=== PATIENT | female | born 1965 ===

== ENCOUNTER 2017-04-23 12:19 | Emergency (ER) | payer OTHER ==
[2017-04-23] MEDS ORDERED: Iohexol 240 (50 ml) PO STA (13:44)
[2017-04-23] MEDS ORDERED: Iohexol 240 (50 ml) ONE (14:08)
[2017-04-23 14:10] LABS: BASO # 0.1 K/uL (0.0-0.2); BASO % 0.7 % (0.0-2.0); EOS # 0.2 K/uL (0.0-0.7); EOS % 2.1 % (0.0-4.0); LYMPH # 2.8 K/uL (1.0-4.3); LYMPH % 34.5 % (20.0-40.0); MEAN CELL VOLUME 79.8 fL (81.0-99.0); MEAN CORPUSCULAR HEMOGLOBIN 25.8 pg (27.0-31.0); MEAN CORPUSCULAR HGB CONC 32.4 g/dL (33.0-37.0); MEAN PLATELET VOLUME 9.1 fL (7.2-11.7); MONO # 0.4 K/uL (0.0-0.8); MONO % 5.2 % (0.0-10.0); RED CELL DISTRIBUTION WIDTH 14.4 % (11.5-14.5); WHITE BLOOD COUNT 8.1 K/uL (4.8-10.8)
[2017-04-23 14:13] LABS: RBC URINE 1 /hpf (0-3); URINE BILIRUBIN NEGATIVE (NEGATIVE); URINE BLOOD NEGATIVE (NEGATIVE); URINE COLOR Yellow (YELLOW); URINE GLUCOSE (UA) NORMAL (Normal); URINE KETONE NEGATIVE (NEGATIVE); URINE LEUKOCYTE ESTERASE NEG Leu/uL (Negative); URINE PROTEIN NEGATIVE (NEGATIVE); URINE UROBILINOGEN NORMAL mg/dL (0.2-1.0); WBC URINE 1 /hpf (0-5)
[2017-04-23 14:32] LABS: CHLORIDE 99 mmol/L (98-107); POTASSIUM 4.2 mmol/L (3.6-5.2); SODIUM 141 mmol/L (132-148)
[2017-04-23 14:34] LABS: BILIRUBIN,TOTAL 0.5 mg/dL (0.2-1.3); GFR AFRICAN-AMERICAN > 60
[2017-04-23 14:35] LABS: ALB/GLOB RATIO 1.1 (1.0-2.1); ALKALINE PHOSPHATASE 102 U/L (38-126); ALT/SGPT 32 U/L (9-52); AST/SGOT 27 U/L (14-36); BLOOD UREA NITROGEN 13 mg/dL (7-17); CALCIUM 8.8 mg/dl (8.6-10.4); CARBON DIOXIDE 26 mmol/L (22-30); GLUCOSE,RANDOM 153 mg/dL (65-105); TOTAL PROTEIN 7.8 g/dL (6.3-8.3)
--- NOTE | 2017-04-23 15:16 | C.PDOC ---
History Of Present Illness 52-year-old female, presents to the emergency department with complaints of two- month duration of hemorrhoid pain. Patient states she has been experiencing bleeding and pain due to enlarged hemorrhoids. Patient states she saw her PMD, who placed patient on preparation H and Polyethelene glycol for constipation, that she is using with minimal relief. Patient notes constipation persists, stating she normally has a bowel movement every 2-3 days. She also notes associated nausea and non-bloody/non-bilious vomiting for 2 days. Time Seen by Provider: 04/23/17 13:19 Chief Complaint (Nursing): Abdominal Pain History Per: Patient History/Exam Limitations: no limitations Onset/Duration Of Symptoms: Days Current Symptoms Are (Timing): Still Present Severity: Moderate Location Of Pain/Discomfort: Diffuse Past Medical History Reviewed: Historical Data, Nursing Documentation, Vital Signs Vital Signs: Last Vital Signs Temp 98.1 F 04/23/17 12:29 Pulse 62 04/23/17 12:29 Resp 20 04/23/17 12:29 BP 96/63 L 04/23/17 12:29 Pulse Ox 99 04/23/17 15:17 - Medical History PMH: Diabetes, HTN, Hypercholesterolemia Family History: States: No Known Family Hx - Social History Hx Tobacco Use: No Hx Alcohol Use: No Hx Substance Use: No - Immunization History Hx Tetanus Toxoid Vaccination: No Hx Influenza Vaccination: Yes Hx Pneumococcal Vaccination: No Review Of Systems Except As Marked, All Systems Reviewed And Found Negative. Constitutional: Negative for: Fever, Chills Cardiovascular: Negative for: Chest Pain, Palpitations Respiratory: Negative for: Shortness of Breath Gastrointestinal: Positive for: Nausea, Vomiting, Abdominal Pain, Other ( hemorrhoids) Genitourinary: Negative for: Vaginal Discharge, Vaginal Bleeding Musculoskeletal: Negative for: Back Pain Neurological: Negative for: Weakness, Numbness Physical Exam - Physical Exam Appears: Non-toxic, No Acute Distress Skin: Warm, Dry, No Rash Head: Atraumatic, Normacephalic Eye(s): bilateral: Normal Inspection, PERRL Oral Mucosa: Moist Lips: Normal Appearing Neck: Normal ROM Chest: Symmetrical Cardiovascular: Rhythm Regular, No Murmur Respiratory: Normal Breath Sounds, No Accessory Muscle Use Gastrointestinal/Abdominal: Soft, Tenderness (lower, with guarding. ), Guarding , No Rebound Rectal: Hemorrhoids (external, minimally engorged) Extremity: Normal ROM Neurological/Psych: Oriented x3 ED Course And Treatment - Laboratory Results Result Diagrams: 04/23/17 14:06 04/23/17 14:06 Lab Interpretation: No Acute Changes O2 Sat by Pulse Oximetry: 99 Pulse Ox Interpretation: Normal - CT Scan/US CT abdomen and pelvis Other Rad Studies (CT/US): Read By Radiologist, Radiology Report Reviewed CT/US Interpretation: Accession No. : [id number]. Patient Name / ID : YARELI SHARPE / [id number]. Exam Date : 04/23/2017 16:27:22 ( Approved ). Study Comment : Sex / Age : F / 52Y. Creator : Nemo Ding MD. Dictator : Nemo Ding MD. Water/Wastewater Project Engineer : Personalized Living Manager Nurse : Nemo Ding MD. Approver2 : Report Date : 04/23/2017 17:09:11. My Comment : . PROCEDURE: CT Abdomen and Pelvis with oral and IV contrast. HISTORY: abd pain. COMPARISON: Abdominal ultrasound performed 07/04/13. TECHNIQUE: Contiguous axial images of the abdomen and pelvis. Oral and IV contrast was administered. Coronal and Sagittal reformats generated and reviewed. Contrast dose: 100 mL Visipaque. Radiation dose: Total exam DLP = 1081.27 mGy-cm. This CT exam was performed using one or more of the following dose reduction techniques: Automated exposure control, adjustment of the mA and/or kV according to patient size, and/or use of iterative reconstruction technique. FINDINGS: LOWER THORAX: No visible consolidation, pleural effusion, or pneumothorax. Small hiatal hernia/distal esophageal wall thickening. LIVER: Unremarkable. GALLBLADDER AND BILE DUCTS: Unremarkable. PANCREAS: Unremarkable. SPLEEN: Unremarkable. ADRENALS: Unremarkable. KIDNEYS AND URETERS: The kidneys enhance symmetrically. No hydronephrosis or obstructing renal calculus. BLADDER: The urinary bladder appears unremarkable. REPRODUCTIVE: Uterus is present. APPENDIX: The appendix appears within normal limits of caliber. No secondary signs of acute appendicitis. BOWEL: The stomach is nondistended. The bowel loops appear within normal limits of caliber without evidence of intestinal obstruction. Pokl-sj-hzygzvbo constipation. PERITONEUM: No significant free fluid. No definite free air. LYMPH NODES: No bulky lymphadenopathy identified. VASCULATURE: No aortic aneurysm. BONES: Degenerative changes of the spine including both anterior and posterior osteophytes. OTHER FINDINGS: Fat containing ventral wall hernia. IMPRESSION: Small hiatal hernia/distal esophageal wall thickening. Mild moderate constipation. Fat containing ventral wall hernia. Degenerative changes of the spine including both anterior and posterior osteophyte formation. Reevaluation Time: 17:33 Reassessment Condition: Improved Disposition Counseled Patient/Family Regarding: Studies Performed, Diagnosis, Need For Followup, Rx Given - Disposition Disposition: HOME/ ROUTINE Disposition Time: 17:41 Condition: IMPROVED Prescriptions: Docusate [Colace] 100 mg PO TID #90 cap Hydrocortisone 2.5% (Rectal) [Anusol-HC] 1 appl RC TID #1 tube Instructions: Hemorrhoids (ED), Constipation (ED) Print Language: KYRGYZ - Clinical Impression Clinical Impression: Constipation, Hemorrhoids - Scribe Statement The provider has reviewed the documentation as recorded by the Scribe (Alysha Juarez) All medical record entries made by the Scribe were at my direction and personally dictated by me. I have reviewed the chart and agree that the record accurately reflects my personal performance of the history, physical exam, medical decision making, and the department course for this patient. I have also personally directed, reviewed, and agree with the discharge instructions and disposition.
[2017-04-23] MEDS ORDERED: Iodixanol 320 MG/ML 100 ML BOTTLE IV ONE (15:38)
--- NOTE | 2017-04-23 17:10 | CT ---
PROCEDURE: CT Abdomen and Pelvis with oral and IV contrast. HISTORY: abd pain COMPARISON: Abdominal ultrasound performed 07/04/13 TECHNIQUE: Contiguous axial images of the abdomen and pelvis. Oral and IV contrast was administered. Coronal and Sagittal reformats generated and reviewed. Contrast dose: 100 mL Visipaque Radiation dose: Total exam DLP = 1081.27 mGy-cm. This CT exam was performed using one or more of the following dose reduction techniques: Automated exposure control, adjustment of the mA and/or kV according to patient size, and/or use of iterative reconstruction technique. FINDINGS: LOWER THORAX: No visible consolidation, pleural effusion, or pneumothorax. Small hiatal hernia/distal esophageal wall thickening. LIVER: Unremarkable. GALLBLADDER AND BILE DUCTS: Unremarkable. PANCREAS: Unremarkable. SPLEEN: Unremarkable. ADRENALS: Unremarkable. KIDNEYS AND URETERS: The kidneys enhance symmetrically. No hydronephrosis or obstructing renal calculus. BLADDER: The urinary bladder appears unremarkable. REPRODUCTIVE: Uterus is present. APPENDIX: The appendix appears within normal limits of caliber. No secondary signs of acute appendicitis. BOWEL: The stomach is nondistended. The bowel loops appear within normal limits of caliber without evidence of intestinal obstruction. Pmjl-uy-hyrklmde constipation. PERITONEUM: No significant free fluid. No definite free air. LYMPH NODES: No bulky lymphadenopathy identified. VASCULATURE: No aortic aneurysm. BONES: Degenerative changes of the spine including both anterior and posterior osteophytes. OTHER FINDINGS: Fat containing ventral wall hernia. IMPRESSION: Small hiatal hernia/distal esophageal wall thickening. Mild moderate constipation. Fat containing ventral wall hernia. Degenerative changes of the spine including both anterior and posterior osteophyte formation.
[2017-04-23 18:09] VITALS: BP 107/68; PULSE 55; RESP 18; TEMP 98.2; O2SAT 100
== END 2017-04-23 18:09 | disposition home or self-care (01) ==
LOC: C.ER 12:19
DX: K64.4 Residual hemorrhoidal skin tags (principal); K59.00 Constipation, unspecified
CPT/HCPCS: 74177; 80053; 81001; 83690; 85025; 96374; 96375; 99284; J2270; J2405; Q9966; Q9967

== ENCOUNTER 2018-01-12 18:15 | Emergency (ER) | payer OTHER ==
[2018-01-12 18:33] VITALS: RESP 18; O2SAT 100
[2018-01-12] MEDS ORDERED: Albuterol 0.083% Inhal Sol (2.5 mg/3 mL) UD IH STA (19:25)
[2018-01-12] MEDS ORDERED: Amoxicillin-Clav 875-125 mg Tab PO STA (19:33)
[2018-01-12] MEDS ORDERED: Albuterol 0.083% Inhal Sol (2.5 mg/3 mL) UD ONE (19:41)
[2018-01-12] MEDS ORDERED: Amoxicillin-Clav 875-125 mg Tab PO ONE (19:42)
--- NOTE | 2018-01-12 20:34 | C.PDOC ---
History Of Present Illness 52 year old female with PMHx of DM presents to the ED for evaluation of cold symptoms associated with nasal congestion, sore throat, swelling and pain to neck lymph noses and a dry cough. Otherwise, Patient denies fever, headache, SOB , dyspnea, wheezing, abdominal pain, nausea, vomit, diarrhea, recent travel, sick contacts. (Ana Orellana) History Per: Patient History/Exam Limitations: no limitations Onset/Duration Of Symptoms: Days Severity: Mild Recent travel outside of the [place]: No Additional History Per: Patient Time Seen by Provider: 01/12/18 19:14 Chief Complaint (Nursing): Cough, Cold, Congestion Past Medical History Reviewed: Historical Data, Nursing Documentation, Vital Signs - Medical History PMH: Diabetes, HTN, Hypercholesterolemia Surgical History: No Surg Hx Family History: States: Unknown Family Hx - Social History Hx Tobacco Use: No Hx Alcohol Use: No Hx Substance Use: No - Immunization History Hx Tetanus Toxoid Vaccination: No Hx Influenza Vaccination: Yes Hx Pneumococcal Vaccination: No Vital Signs: Last Vital Signs Temp 98.5 F 01/12/18 21:10 Pulse 77 01/12/18 21:10 Resp 18 01/12/18 21:10 BP 110/66 01/12/18 21:10 Pulse Ox 100 01/12/18 21:10 Review Of Systems Constitutional: Negative for: Fever, Chills ENT: Positive for: Nose Congestion Cardiovascular: Negative for: Chest Pain Respiratory: Positive for: Cough. Negative for: Shortness of Breath Gastrointestinal: Negative for: Nausea, Vomiting, Abdominal Pain Musculoskeletal: Positive for: Neck Pain Skin: Negative for: Rash Neurological: Negative for: Headache Physical Exam - Physical Exam Appears: Well, Non-toxic, No Acute Distress Skin: Normal Color, Warm, Dry, No Rash Head: Normacephalic Eye(s): bilateral: PERRL Ear(s): Bilateral: Normal Nose: No Flaring, Discharge (B/L nasal congestion with scant clear rhinorrhea) Oral Mucosa: Moist, No Drooling Tongue: Normal Appearing Lips: Normal Appearing Throat: Erythema (mod B/L with mild edema), No Exudate, No Drooling Neck: Trachea Midline, Supple Lymphatic: Adenopathy (R>L anterior cervical, mild tenderness, mobile) Cardiovascular: Rhythm Regular, No Murmur Respiratory: No Decreased Breath Sounds, No Accessory Muscle Use, No Stridor, No Wheezing Gastrointestinal/Abdominal: Soft, No Tenderness Extremity: Normal ROM, No Deformity, No Swelling Neurological/Psych: Oriented x3, Normal Speech ED Course And Treatment O2 Sat by Pulse Oximetry: 100 Pulse Ox Interpretation: Normal - Radiology CXR: Interpreted by Me, Viewed By Me CXR Interpretation: Yes: No Acute Disease Progress Note: On re-evaluation, pt is afebrile, hemodynamicaly stable. Non- toxic. Tolerate Po well in ED. PulseOx 100% RA. ENT: exam c/w acute pharyngitis, uvula midline, no edema. Neck: Supple, (-) meningeal sign. Lungs : CTA B/L, BS equal B/L. CVS: (+)S1S2, reg. Abd: benign. CXR review - normal. Pt advised on course of ds. ref. to f/u with PMD in 1-2 days for re- eavl. return to ED if anyw orsening or new changes. Disposition Counseled Patient/Family Regarding: Studies Performed, Diagnosis, Need For Followup, Rx Given - Disposition Disposition Time: 20:31 - Disposition Referrals: Kristel Silverman MD [Medical Doctor] - Disposition: HOME/ ROUTINE Condition: STABLE Additional Instructions: Encourage fluids Take medication as prescribed Follow up with PMD in 2-3 days for re-evaluation. Return to ED if any worsening or new changes. Prescriptions: Amoxicillin/Clavulanate [Augmentin 875 MG-125 MG] 1 tab PO BID #14 tab Benzonatate [Tessalon Perle] 100 mg PO TID #14 capsule Prednisone [Deltasone] 20 mg PO DAILY #3 tablet Instructions: Sore Throat in Adults Forms: [employer] (Solomon Islander) Print Language: ESTONIAN - Clinical Impression Clinical Impression: Pharyngitis - PA / WORKGROUP LEADER / Resident Statement MD/DO has reviewed & agrees with the documentation as recorded. - Scribe Statement The provider has reviewed the documentation as recorded by the Scribe - Scribe Statement George Mary All medical record entries made by the Scribe were at my direction and personally dictated by me. I have reviewed the chart and agree that the record accurately reflects my personal performance of the history, physical exam, medical decision making, and the department course for this patient. I have also personally directed, reviewed, and agree with the discharge instructions and disposition. (Ana Orellana)
[2018-01-12 21:12] VITALS: BP 110/66; PULSE 77; TEMP 98.5
--- NOTE | 2018-01-13 08:07 | RAD ---
HISTORY: Cough COMPARISON: Chest x-ray 09/23/2016 TECHNIQUE: Chest PA and lateral FINDINGS: LUNGS: No focal consolidation is seen. PLEURA: No pleural effusion is identified. CARDIOVASCULAR: Heart size is within normal limits. OSSEOUS STRUCTURES: Degenerative changes noted of the spine. VISUALIZED UPPER ABDOMEN: Unremarkable. OTHER FINDINGS: None. IMPRESSION: No acute cardiopulmonary process seen.
== END 2018-01-12 21:11 | disposition home or self-care (01) ==
LOC: C.ER 18:15
DX: J02.9 Acute pharyngitis, unspecified (principal); E11.9 Type 2 diabetes mellitus without complications

== ENCOUNTER 2018-08-02 13:06 | Emergency (ER) | payer OTHER ==
[2018-08-02] MEDS ORDERED: Sodium Chloride 0.9% 500 ML IV ONE (15:08)
[2018-08-02] MEDS ORDERED: Sodium Chloride 0.9% 1,000 ML ONE ×2 (15:44)
[2018-08-02 15:49] LABS: BASO # 0.1 K/uL (0.0-0.2); BASO % 0.6 % (0.0-2.0); EOS # 0.2 K/uL (0.0-0.7); EOS % 2.4 % (0.0-4.0); HEMOGLOBIN 11.3 g/dL (11.0-16.0); LYMPH # 2.9 K/uL (1.0-4.3); LYMPH % 30.8 % (20.0-40.0); MEAN CELL VOLUME 79.5 fL (81.0-99.0); MEAN CORPUSCULAR HEMOGLOBIN 26.3 pg (27.0-31.0); MEAN CORPUSCULAR HGB CONC 33.1 g/dL (33.0-37.0); MEAN PLATELET VOLUME 8.3 fL (7.2-11.7); MONO # 0.5 K/uL (0.0-0.8); MONO % 5.5 % (0.0-10.0); NEUT # 5.7 K/uL (1.8-7.0); NEUT % 60.7 % (50.0-75.0); RBC 4.28 Mil/uL (3.80-5.20); RED CELL DISTRIBUTION WIDTH 13.9 % (11.5-14.5); WHITE BLOOD COUNT 9.4 K/uL (4.8-10.8)
[2018-08-02 15:53] LABS: SQUAMOUS EPITHIAL < 1 /hpf (0-5); URINE BILIRUBIN NEGATIVE (NEGATIVE); URINE BLOOD NEGATIVE (NEGATIVE); URINE CLARITY Clear (Clear); URINE COLOR Yellow (YELLOW); URINE GLUCOSE (UA) NORMAL (Normal); URINE LEUKOCYTE ESTERASE NEG Leu/uL (Negative); URINE PROTEIN NEGATIVE (NEGATIVE); URINE UROBILINOGEN NORMAL mg/dL (0.2-1.0)
[2018-08-02 16:02] LABS: ALB/GLOB RATIO 1.2 (1.0-2.1); ALBUMIN 4.4 g/dL (3.5-5.0); ALT/SGPT 26 U/L (9-52); AST/SGOT 26 U/L (14-36); BLOOD UREA NITROGEN 18 mg/dL (7-17); CALCIUM 9.2 mg/dl (8.6-10.4); GFR NON-AFRICAN AMERICAN > 60; LIPASE 143 U/L (23-300)
[2018-08-02 17:23] VITALS: BP 111/72; PULSE 62; RESP 16; TEMP 98.4; O2SAT 100
--- NOTE | 2018-08-02 17:30 | C.PDOC ---
History Of Present Illness 53 y/o female with PMHx of diabetes and obesity, presents to the ED with 3 episodes of vomiting today. Associated with feeling nauseous since this morning. Patient notes that she recently missed an appointment with her doctor as she had to go to court. She also complains of multiple itchy lesions throughout her body, on and off for the past several months. Etiology is unclear. Otherwise patient denies any fever, chills, headache, SOB, chest pain, or abdomen pain. She did vomit once in the ED. Time Seen by Provider: 08/02/18 14:01 Chief Complaint (Nursing): Abnormal Skin Integrity History Per: Patient History/Exam Limitations: no limitations Onset/Duration Of Symptoms: Days (x1) Current Symptoms Are (Timing): Still Present Past Medical History Reviewed: Historical Data, Nursing Documentation, Vital Signs Vital Signs: Last Vital Signs Temp 98.4 F 08/02/18 17:22 Pulse 62 08/02/18 17:22 Resp 16 08/02/18 17:22 BP 111/72 08/02/18 17:22 Pulse Ox 100 08/02/18 17:22 - Medical History PMH: Diabetes, HTN, Hypercholesterolemia Surgical History: Hernia Repair, Family History: States: Unknown Family Hx - Social History Hx Tobacco Use: No Hx Alcohol Use: No Hx Substance Use: No - Immunization History Hx Tetanus Toxoid Vaccination: No Hx Influenza Vaccination: Yes Hx Pneumococcal Vaccination: No Review Of Systems Except As Marked, All Systems Reviewed And Found Negative. Constitutional: Negative for: Fever, Chills Cardiovascular: Negative for: Chest Pain Respiratory: Negative for: Shortness of Breath Gastrointestinal: Positive for: Nausea, Vomiting. Negative for: Abdominal Pain, Diarrhea, Constipation Neurological: Negative for: Headache Physical Exam - Physical Exam Appears: Non-toxic, No Acute Distress Skin: Warm, Dry, Other (1 raised lesion to the right calf, which is tender to palpation, with two punctate points to it; there are a couple of other lesions to her legs, abdomen, and back, which appear to be dry, scaly, non-erythematous areas; no prurulent drainage) Head: Atraumatic, Normacephalic Eye(s): bilateral: Normal Inspection, PERRL, EOMI Oral Mucosa: Moist Neck: Supple Chest: Symmetrical Cardiovascular: Rhythm Regular, No Murmur Respiratory: Normal Breath Sounds, No Rales, No Rhonchi, No Wheezing Gastrointestinal/Abdominal: Soft, No Tenderness, No Guarding, No Rebound, Other (Obese abdomen) Extremity: Normal ROM, Capillary Refill (less than 2 sec), No Swelling Pulses: Left Dorsalis Pedis: Normal, Right Dorsalis Pedis: Normal Neurological/Psych: Oriented x3, Normal Speech ED Course And Treatment - Laboratory Results Result Diagrams: 08/02/18 15:46 08/02/18 15:46 O2 Sat by Pulse Oximetry: 100 (RA) Pulse Ox Interpretation: Normal Medical Decision Making Medical Decision Making: Initial Plan: --Blood work --UA --IV fluids --Zofran 4 mg IVP --Pepcid 20 mg IVP Labs reviewed, no elevated WBC. Electrolytes are normal. Will cover with Keflex. Patient also discharged with prescription for Zofran, advised patient to follow up with her doctor this week. Disposition Counseled Patient/Family Regarding: Studies Performed, Diagnosis, Need For Followup, Rx Given - Disposition Disposition: HOME/ ROUTINE Disposition Time: 17:29 Condition: STABLE Prescriptions: Cephalexin [Keflex] 500 mg PO TID #40 capsule Ondansetron [Zofran Odt] 1 odt PO BID PRN #6 odt PRN Reason: .nausea vomiting Instructions: Skin Rash Forms: [facility] (Grenadian), Gen Discharge Inst Grenadian - POA Present On Arrival: None - Clinical Impression Clinical Impression: Skin irritation, Nausea - Scribe Statement The provider has reviewed the documentation as recorded by the Mary Kay Aguilar Provider Attestation: All medical record entries made by the Mary Kay were at my direction and personally dictated by me. I have reviewed the chart and agree that the record accurately reflects my personal performance of the history, physical exam, medical decision making, and the department course for this patient. I have also personally directed, reviewed, and agree with the discharge instructions and disposition.
== END 2018-08-02 17:37 | disposition home or self-care (01) ==
LOC: C.ER 13:06
DX: R11.0 Nausea (principal); L98.9 Disorder of the skin and subcutaneous tissue, unspecified; I10 Essential (primary) hypertension; E11.9 Type 2 diabetes mellitus without complications; E78.00 Pure hypercholesterolemia, unspecified; E66.9 Obesity, unspecified
CPT/HCPCS: 80053; 81001; 82948; 83690; 85025; 96361; 96374; 96375; 99284; J2405; J7040

== ENCOUNTER 2018-12-07 07:25 | Outpatient (CLI) | payer OTHER | END 2018-12-07 07:26 | disposition home or self-care (01) | LOC: C.LAB 07:25 | DX: Z12.11 Encounter for screening for malignant neoplasm of colon (principal); E11.29 Type 2 diabetes mellitus with other diabetic kidney complication; I10 Essential (primary) hypertension; E78.2 Mixed hyperlipidemia; D50.9 Iron deficiency anemia, unspecified ==

== ENCOUNTER 2018-12-14 12:46 | Outpatient (CLI) | payer OTHER | END 2018-12-14 12:47 | disposition home or self-care (01) | LOC: C.MAMMO 12:46 | DX: Z12.31 Encounter for screening mammogram for malignant neoplasm of breast (principal) ==